=== PATIENT | male | born 1980 | race Caucasian/White ===

== ENCOUNTER → 2020-11-13 | Outpatient (CLI) | payer OTHER ==
--- NOTE | 2020-11-13 09:42 | REP ---
INDICATION: VARICOSE VEINS KSENIA LOWER EXTREM VENAOU INSUFFICIEN. TECHNIQUE: Multiple ultrasonographic images of the deep venous structures of the bilateral thighs were obtained from the level of the common femoral vein to the popliteal vein in the longitudinal and transverse scan planes along with Doppler interrogation and color flow Doppler imaging. Additional reflux imaging techniques utilized for both lower extremities. FINDINGS: There is no abnormal echogenic material seen within any of the visualized deep venous structures that would suggest acute thrombosis. Coaptation is unremarkable throughout. Doppler interrogation shows an expected response to respiratory variability and augmentation. The color flow Doppler images show what appears to be a normal vascular pattern throughout. 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 Right reflux study: Common femoral vein shows the reflux for 2 seconds with bed tilt and standing. Anterior accessory GSV: present, reflex for 9 seconds, standing only GSV at femoral junction: Reflux noted with AP dimension 8 mm 41.9 seconds with standing only. GSV at mid thigh: Reflux with AP diameter 6 mm for 8.7 seconds with bed tilt GSV at knee: No reflux AP dimension 4 mm. SFV proxima:l yes reflux for 1.3 seconds with standing only SFV mid: Yes reflux for 2 seconds with bed tilt. SFV distal: No reflux Popliteal: No reflux Camacho V no reflux, AP 3 mm Left reflux study: Common femoral vein shows reflux for 4.4 seconds with bed tilt Anterior accessory GSV: Not present GSV femoral junction: No reflux AP 8 mm GSV at mid thigh: Yes reflux AP 3 mm, 1.5 seconds with that till GSV at knee: Yes reflux, AP 4 mm 41.8 seconds at rest or standing. S at the proximal: No reflux SFA mid: No reflux As if the distal: No reflux Popliteal: No reflux Camacho V: No reflux AP 2 mm. IMPRESSION: There is no ultrasonographic evidence of deep venous thrombosis involving any of the visualized deep venous structures of the bilateral thighs as described above. Right lower extremity shows reflux from the common femoral vein through the mid SFV and in the greater saphenous vein as described above. There is a collateral from the GSV in its mid course feeding varicosities with reflux for 8.5 seconds The left upper extremity does show reflux common femoral vein and the greater saphenous vein as described above. There is a collateral from the greater saphenous vein mid course without reflux. The greater saphenous vein did have mid-distal reflux while standing but not with Valsalva. Accredited by the [employer] in Vascular Peripheral Ultrasound. <Electronically signed by Seun Nicholson > 11/13/20 0915
== END ==
LOC: M RAD 07:49
PROVIDERS: ATTEND Physician Assistant
DX: I87.2 Venous insufficiency (chronic) (peripheral) (principal); I83.813 Varicose veins of bilateral lower extremities with pain

== ENCOUNTER → 2021-03-01 | Outpatient (CLI) | payer OTHER ==
--- NOTE | 2021-03-01 10:53 | REPVR ---
PROCEDURE INFORMATION: Exam: MR Lumbar Spine Without Contrast Exam date and time: 03/01/2021 10:07 AM Age: 40 years old Clinical indication: Low back pain; Patient HX: Chronic lbp worsening over past several months. PT states nki. Unable to gain access to priors @other facilities TECHNIQUE: Imaging protocol: Multiplanar magnetic resonance images of the lumbar spine without intravenous contrast. COMPARISON: No relevant prior studies available. FINDINGS: Vertebrae: Vertebral body heights normal. There is disc desiccation at L3-L4 with preserved disc height and at L4-L5 with mild disc height loss. Vertebral body marrow signal is unremarkable. Spinal cord: Conus terminates at T12-L1 and appears normal in signal intensity without intrinsic or extrinsic lesion. L1-L2: There is mild disc bulge. There is mild facet degeneration. There is no significant spinal stenosis. There is no significant neural foraminal narrowing. L2-L3: There is mild disc bulge. There is mild facet degeneration. There is no significant spinal stenosis. There is minimal medial neural foraminal narrowing. L3-L4: There is mild disc bulge. There is mild facet degeneration. There is no significant spinal stenosis. There is minimal medial neural foraminal narrowing. L4-L5: There is right laminectomy defect. There is generalized disc bulge and superimposed approximately 4 mm central disc protrusion. This indents the ventral thecal sac and contacts the bilateral L5 nerve roots in the anterolateral thecal sac with mild narrowing of the most superior aspect of bilateral L5 subarticular recesses. There is no evidence of nerve root displacement. There is mild facet degeneration. There is mild spinal stenosis. There is mild bilateral neural foraminal narrowing. L5-S1: There is no significant disc bulge. There is mild facet degeneration. There is no significant spinal stenosis. There is no significant neural foraminal narrowing. Soft tissues: Unremarkable. IMPRESSION: L4-L5 shows a right laminectomy defect. There is generalized disc bulge and central disc protrusion mildly indenting thecal sac and contacting but not displacing L5 nerve roots bilaterally as described. Electronically signed by: Mary Kirby On 03/01/2021 10:52:58 AM
== END ==
LOC: M PLARAD 09:39
PROVIDERS: ATTEND Registered Nurse
DX: M54.5 Low back pain (principal); M51.26 Other intervertebral disc displacement, lumbar region

== ENCOUNTER 2023-08-21 11:18 | Emergency (ER) | payer OTHER ==
[~2023-08-21] VITALS: Ht 188 cm; Wt 98.5 kg
[2023-08-21] MEDS ORDERED: BOOSTRIX VACCINE (TETANUS/DIPHTH/ACEL. PERTUSSIS) 0.5ML SYR IM.IMMUN ONE (13:30)
[2023-08-21] MEDS ORDERED: LIDOCAINE 2% MDV 20ML VIAL SC ONE (13:30)
[2023-08-21] MEDS ORDERED: CEPHALEXIN 500 MG CAP PO ONE (13:30)
[2023-08-21] MEDS ORDERED: NEOSPORIN OINT 0.9 GM PKT TOP ONE (14:20)
[2023-08-21] MEDS ORDERED: CEPH500C PO (14:20)
[2023-08-21 14:30] VITALS: BP 128/73; TEMP 97.9; O2SAT 99
== END 2023-08-21 14:32 | disposition home or self-care (01) ==
LOC: M ED 11:18
DX: S61.011A Laceration without foreign body of right thumb without damage to nail, initial encounter (principal); W26.9XXA Contact with unspecified sharp object(s), initial encounter; Y92.9 Unspecified place or not applicable; Y93.89 Activity, other specified; Y99.0 Civilian activity done for income or pay

== ENCOUNTER 2023-08-29 06:35 | Emergency (ER) | payer OTHER ==
[~2023-08-29] VITALS: Ht 188 cm; Wt 99.8 kg
[~2023-08-29 06:35] MED LIST: CEPH500C PO
[2023-08-29 07:10] VITALS: BP 131/77; TEMP 98.1; O2SAT 96
== END 2023-08-29 07:18 | disposition home or self-care (01) ==
LOC: M ED 06:35
DX: Z48.02 Encounter for removal of sutures (principal)

== ENCOUNTER → 2023-09-27 | Outpatient (REF) | payer OTHER | LOC: M LAB REF 17:44 | PROVIDERS: ATTEND Physician Assistant Medical | DX: J02.9 Acute pharyngitis, unspecified (principal) ==

== ENCOUNTER → 2024-12-06 | Outpatient (CLI) | payer OTHER | LOC: M RAD 10:44 | PROVIDERS: ATTEND Physician Assistant | DX: I83.811 Varicose veins of right lower extremity with pain (principal) ==